=== PATIENT | female | born 1990 | race Two or more races ===

== ENCOUNTER 2016-09-20 20:30 | Outpatient (CLI) | payer MEDICAID ==
[2016-09-20 21:13] VITALS: BMI 31.7
[2016-09-20 22:01] LABS: URINE BILIRUBIN NEGATIVE (NEGATIVE); URINE BLOOD NEGATIVE (NEGATIVE); URINE GLUCOSE (UA) NEGATIVE (NEGATIVE); URINE LEUKOCYTE ESTERASE NEGATIVE (NEGATIVE); URINE NITRITE NEGATIVE (NEGATIVE); URINE PROTEIN NEGATIVE (NEGATIVE); URINE UROBILINOGEN NORMAL (0-1 mg/dl)
[2016-09-20 22:17] LABS: URINE APPEARANCE CLEAR; URINE COLOR YELLOW
== END 2016-09-20 20:42 | disposition home or self-care (01) ==
LOC: FBCOUT 20:30 → FBC 20:30 → FBCOUT 20:42
PROVIDERS: ATTEND Advanced Practice Midwife
DX: O36.8190 Decreased fetal movements, unspecified trimester, not applicable or unspecified (principal); Z3A.00 Weeks of gestation of pregnancy not specified
CPT/HCPCS: 81003; 59025; 81002; G0463

== ENCOUNTER 2016-10-22 08:28 | Outpatient (CLI) | payer MEDICAID ==
[2016-10-22 08:52] VITALS: BMI 33.4
== END 2016-10-22 10:22 | disposition home or self-care (01) ==
LOC: FBCOUT 08:28 → FBC 08:29 → FBCOUT 10:22
PROVIDERS: ATTEND Advanced Practice Midwife
DX: O26.899 Other specified pregnancy related conditions, unspecified trimester (principal); R12 Heartburn; Z3A.00 Weeks of gestation of pregnancy not specified
CPT/HCPCS: 59025; 81002; G0463

== ENCOUNTER 2016-11-21 16:06 | Outpatient (CLI) | payer MEDICAID | END 2016-11-21 16:07 | disposition home or self-care (01) | LOC: NC 16:06 | PROVIDERS: ATTEND Licensed Practical Nurse | DX: O26.03 Excessive weight gain in pregnancy, third trimester (principal); Z71.3 Dietary counseling and surveillance; O99.210 Obesity complicating pregnancy, unspecified trimester; E66.9 Obesity, unspecified; Z3A.00 Weeks of gestation of pregnancy not specified ==

== ENCOUNTER 2016-12-04 07:08 | Outpatient (CLI) | payer MEDICAID ==
--- NOTE | 2016-12-01 16:42 | HP ---
LEONA JAMES : 1990 DATE OF ADMISSION: December 04, 2016 ADMITTING DIAGNOSES: at 37 weeks and 4 days with breech presentation. PLANNED PROCEDURE: External cephalic version attempt. HISTORY OF PRESENT ILLNESS: Leona James is a 26-year-old 1, para 0, who has been followed by the supervisor mold construction practice since about 11 weeks gestation. She had a 13-week ultrasound which was used to date this . She is due on December 21, 2016, and is thought to be now at 37 1/2 weeks gestation. The patient has been seen regularly in the office. On November 26, 2016 she was evaluated and thought to have a breech baby. Indeed, her ultrasound on November 28, 2016 confirmed that this baby is in the cony breech presentation. Eleni Gallego, certified nurse supervisor mold construction, has had a couple of conversations with the patient and talked to her about options. She does understand that if she should go into labor, we would recommend a section for delivery if the baby is still breech. On the other hand, we could attempt to turn this baby and risks and possible complications have been reviewed. The patient is opting to at least try for an external version. Leona will be admitted on December 04, 2016 to the [facility] for this procedure. COURSE: Patient has had regular visits. She is currently a student in cosmetology school. The father of the baby, Se, is present and supportive. She has had routine blood work including blood type which was O positive. She had the one hour glucose tolerance test which came back at 128. She also has had a GBS culture which came back negative. The patient has had a regular increase in her fundal height. She has had normal blood pressures throughout the , no significant proteinuria. She, unfortunately, has had a significant weight gain of nearly 60 pounds so far. The patient actually had an ultrasound on November 09, 2016 which also showed that this baby was breech. This was at 34 weeks. Growth was at the 50th percentile at that time with a normal DONELL. The patient has measured a bit large for gestational age clinically but that ultrasound is certainly reassuring for appropriate growth. PAST MEDICAL HISTORY: Otherwise, the patient has no major medical problems. SOCIAL HISTORY: She does not smoke, drink or use recreational drugs. She is trying to eat a well balanced diet. She denies any known exposure or any genetic risks. REVIEW OF SYSTEMS: Negative. PHYSICAL EXAM: Exam was deferred until the morning of her admission. We will also do an ultrasound before and during the external version attempts. IMPRESSION: Leona James is a 26-year-old primigravida who is now at term and her baby is in a persistent breech presentation. PLAN: The patient will be admitted for evaluation for an external version attempt.
[2016-12-04] MEDS ORDERED: IV START KIT ONE (07:23)
[2016-12-04] MEDS ORDERED: LACTATED RINGERS 1,000 ML ONE (07:23)
[2016-12-04] MEDS ORDERED: TERBUTALINE SULFATE 1 MG/ML VIAL IV ONE (07:44)
[2016-12-04] MEDS ORDERED: LACTATED RINGERS 1,000 ML IV SCH (07:45)
[2016-12-04 07:54] LABS: HEMATOCRIT 38.3 % (37.0-47.0); HEMOGLOBIN 12.9 gm/l (12.0-16.0); MEAN CORPUSCULAR HEMOGLOBIN 29.7 pg (27.0-31.0); MEAN CORPUSCULAR HGB CONC 33.7 g/dl (33.0-37.0); RED CELL DISTRIBUTION WIDTH 12.6 % (11.5-14.5)
[2016-12-04] MEDS ORDERED: TERBUTALINE SULFATE 1 MG/ML VIAL SUB-Q ONE (08:03)
--- NOTE | 2016-12-04 09:16 | PDOC39B ---
Hospital Course: ADMIT DATE: DISCHARGE DATE: 12/04/16 ADMISSION DIAGNOSES: Breech at 37.5 wks PROCEDURES: Attempted external version, unsuccessful HISTORY OF PRESENT ILLNESS: 26 year old Josue Gilmore at weeks days presenting with breech presentation for the past month or so. She does have borderline low fluid. Risks/benefits reviewed; consent signed. HOSPITAL COURSE: The patient was admitted for this procedure. Breech confirmed ; IV started; terbutaline given SQ. Four attempts at turning this baby barely moved her. Martita remained stubbornly breech with head in LUQ and spine to the maternal left. Legs were extended and fluid low. We were unable to turn this baby. NST reactive. Pt was sent home with plan for BPP this Saturday. - Physical Exam General: Afebrile Psych/Mental Status: Mood/Affect Appropriate Lungs: Clear to Auscultation Bilaterally Cardiovascular: Regular Rate and Rhythm Lochia: Light Skin: Normal Color, Warm - Discharge Diagnosis (1) Breech presentation Status: AcuteAssessment/Plan: Unable to turn this baby. We will wait till 39 + weeks to schedule a external version. BPP this Thursday 12/07 and NST on Monday 12/11. - Discharge Plan Condition: Good Disposition: Home Discharge Medications: None. Continue PNvits. Follow-Up: Ligia Cardona MD [Staff Physician] - (Kristina is scheduled for 09:45 am on Saturday12/11/[address] [facility]. )
[2016-12-04 10:53] VITALS: BMI 38.0
--- NOTE | 2016-12-04 10:55 | OP ---
Kristina James : 1990 DATE OF PROCEDURE: 12/04/2016 PROCEDURE: Attempted external cephalic version. SURGEON: Dr. Ligia Cardona INSTANT POWDER SUPERVISOR: Dr. Pinky Mock PROCEDURE IN DETAIL: On the morning of 12/04/2016 after the usual admission evaluation, Kristina James was evaluated with an ultrasound. She was here with her brother Ronan and he spoke only Iraqi. Fortunately, Kristina spoke Danish very well. Her baby girl will be named Martita. Martita was in a breech presentation with the back to the maternal left. The head in the left upper quadrant. The breech not yet engaged. The baby's legs were extended. Placenta was posterior. The fluid was low normal. After reviewing external version with the patient and discussing risks and possible complications and after also discussing alternatives Kristina gave her consent to attempt this external version. She had an IV in place. She was given Terbutaline subcutaneously and this was allowed to take effect . At this point, we held the breech out of the pelvis and then first a forward roll was initiated. I did this with Dr. Mock's assistance and periodically we would check the heart rate with the ultrasound. We were able to displace the head towards the right, but never even got the baby into a transverse position. After taking a break we then tried a reverse roll and this time we could elevate the breech onto the right side, but the head did not come down well and we could not rotate this baby even to a transverse position. I attempted a reverse roll twice and a forward roll twice and in each instance the baby flexed, but did not turn. I suspect that part of the problem was the low fluid. The baby, however, never showed any sign of stress. There were no heart rate decelerations. The baby was monitored both before and after: it had reactive NST. After attempting this external version four times it was decided that further attempts were not going to be useful and the patient agreed. We then talked about an alternate plan. I would like Kristina to come back on Saturday for biophysical profile. She is choosing to this at [facility], but they will call me when they have those results. The patient will then see me next Saturday here in the office and we will do a non-stress test. If the baby is still in a breech presentation we will discuss scheduling a elective primary section for delivery. We did briefly talk about risks and possible complications today. Patient's questions were answered. She will continue to try exercises to see if this baby will turn spontaneously. She does accept that if the baby does not turn would be the optimal way to deliver the baby. JOB: [id number]
== END 2016-12-04 10:15 | disposition home or self-care (01) ==
LOC: FBCOUT 07:08 → FBC 07:15 → FBCOUT 10:15
PROVIDERS: ATTEND Obstetrics & Gynecology
PROC: 10S0XZZ Reposition Products of Conception, External Approach (ICD-10-PCS; principal; 2016-12-04)
DX: O32.1XX0 Maternal care for breech presentation, not applicable or unspecified (principal); Z3A.37 37 weeks gestation of pregnancy
CPT/HCPCS: 85027; 59412; 59025; 76815; J3105; J7120; G0463

== ENCOUNTER 2016-12-14 04:00 | Inpatient (IN) | payer MEDICAID ==
--- NOTE | 2016-12-11 18:49 | HP ---
KRISTINA JAMES : 1990 [id number] DATE OF ADMISSION: December 14, 2016 ADMITTING DIAGNOSES: 1. at term. 2. Persistent breech presentation. PLANNED PROCEDURE: Primary section. HISTORY OF PRESENT ILLNESS: Kristina James is a 26-year-old 1, para 0, who has been followed in the vinyl dipper practice since June of 2016. At her new OB visit, she was felt to be 11 to 12 weeks along. She was assigned her due date based on her first ultrasound which was at 13 weeks and 3 days estimated gestational age. This predicted an EDC of December 21, 2016. The patient has been followed through her with regular visits and has shown an appropriate fundal height from 16 weeks on. If anything, she has been measuring a little bit ahead. In any case, she is thought to be at term. When she was seen in the office at 36 1/2 weeks gestation, her exam suggested a breech presentation. The patient then had an ultrasound two days later which confirmed a cony breech presentation. Patient was then set up for an external cephalic version. This was attempted on December 04, 2016 at 37 1/2 weeks gestation. Unfortunately, this was not successful. The baby was in a breech presentation with the back to the maternal left. Both legs were extended with the feet up high. Fortunately the placenta was posterior but even with this, we could not budge this baby out of a breech presentation. Since then the patient has continued to try various exercises to help this baby to turn, but as of December 11, 2016, the baby was still definitely breech. The patient is having some [place]-Reis contractions but no regular strong contractions. No signs of labor as yet. Risks and possible complications of a breech vaginal have been discussed at length with the patient. Because of this, the recommendation is that we do a primary section for delivery. I have also discussed the risks and possible complications of the surgery with the patient. Alternatives have been presented. Her questions have been answered. The patient is choosing to proceed with a primary section for delivery on December 14, 2016. She will be 39 weeks that day. Clinically I suspect that she might be a little bit further along. This is a good size baby with an estimated weight of probably 8 pounds. COURSE: course has been relative unremarkable. The patient has had normal blood pressures throughout the . No significant proteinuria. She has had a weight gain since June of approximately 56 pounds. Some of this is probably fluid retention in this past week. Her baby is active. She had a non-stress test on December 11, 2016 which was normal and reassuring. She had a biophysical profile on Wednesday, December 07, 2016 after the external version attempt and this was also normal and reassuring. The baby's fluid, however, is borderline low. This is partly why I do not recommend waiting past her due date before delivering this baby. She may be actually further along than we think as she does seem to have low fluid. This patient's testing during the has been normal and reassuring including a group B strep test that was negative. She also had a most recent CBC on December 04, 2016 that was normal with a hemoglobin of 12.9 and a platelet count of 165. She had a one-hour glucose challenge test on September 24, 2016 that came back 128. She is O positive with a negative antibody screen. No other problems have been identified during the . The patient chose not to do any genetic testing for this baby. At her anatomy ultrasound, however, the baby was thought to be a girl and her name will be Nita. PAST MEDICAL HISTORY: Generally Kristina is healthy. She was having somewhat irregular periods before conceiving this . This was not exactly a planned , but she was not on control. She had her Nexplanon removed at the beginning of the year in 2015. She is in cosmetology school. She denies any major medical problems. SOCIAL HISTORY: She does not smoke or drink a significant amount of alcohol or use recreational drugs. The patient has not traveled outside the [place] during this . FAMILY HISTORY: Negative. PHYSICAL EXAM: VITAL SIGNS: Blood pressure 118/80, pulse and respirations normal. Weight 235 pounds. GENERAL: Kristina is a pleasant, intelligent woman who speaks Hungarian very well. LUNGS: Clear to auscultation. No costovertebral angle tenderness. HEART: Regular rate and rhythm. ABDOMEN: Gravid with an estimated weight of 8 pounds. Baby is in a breech presentation with the head in the left upper quadrant. The back is on the left side. heart tones are easily heard at about 150 beats per minute. EXTREMITIES: The patient does have some mild peripheral fluid retention. She was also noted to have 1+ proteinuria. PELVIC: No pelvic exam was performed. IMPRESSION: Kristina is a 26-year-old primigravida with a breech presentation at term. The attempt at an external cephalic version was not successful. The patient is being admitted on Saturday, December 14, 2016, for a primary section.
[2016-12-14] MEDS ORDERED: IV START KIT ONE (05:04)
[2016-12-14] MEDS ORDERED: LACTATED RINGERS 1,000 ML ONE (05:05)
[2016-12-14] MEDS ORDERED: SODIUM CHLORIDE 0.9% FLUSH 10 ML ONE (05:06)
[2016-12-14] MEDS ORDERED: CEFAZOLIN SODIUM 2 GRAM DUPLEX 2 G in Premix (D5W) 50 ml 1 EACH IV PRN (05:07)
[2016-12-14] MEDS: LACTATED RINGERS 1,000 ML IV SCH ×2 (05:35→06:55)
[2016-12-14 06:26] LABS: HEMATOCRIT 35.1 % (37.0-47.0); HEMOGLOBIN 11.6 gm/l (12.0-16.0); MEAN CELL VOLUME 89.8 fl (81.0-99.0); MEAN CORPUSCULAR HEMOGLOBIN 29.7 pg (27.0-31.0); RED CELL DISTRIBUTION WIDTH 13.2 % (11.5-14.5)
[2016-12-14] MEDS ORDERED: SPINAL PROCEDURAL TRAY 1 EACH ONE (06:28)
[2016-12-14] MEDS ORDERED: FENTANYL 100 MCG/2 ML VIAL ONE (06:29)
[2016-12-14] MEDS ORDERED: MORPHINE SULFATE (DURAMORPH) 1 MG/ML 10ML AMP ONE (06:30)
[2016-12-14 06:44] VITALS: BMI 36.3
[2016-12-14] MEDS ORDERED: CEFAZOLIN SODIUM 2 GRAM DUPLEX 50 ML IV ONE (07:27)
[2016-12-14] MEDS ORDERED: PHENYLEPHRINE 10 MG/1 ML (1%) VIAL ONE (07:33)
[2016-12-14] MEDS ORDERED: OXYTOCIN 10 UNITS/ML VIAL ONE (07:38)
[2016-12-14] MEDS ORDERED: HYDROMORPHONE HCL 1 MG/ML SYRINGE IV PRN (07:50)
[2016-12-14] MEDS ORDERED: DIPHENHYDRAMINE HCL 50 MG/1 ML VIAL IV PRN ×2 (07:50→09:10)
[2016-12-14] MEDS ORDERED: EPHEDRINE SULFATE 50 MG/ML 1ML VIAL IV PRN (07:50)
[2016-12-14] MEDS ORDERED: ONDANSETRON 4 MG/2ML 2 ML VIAL IV PRN ×2 (07:50→09:10)
[2016-12-14] MEDS ORDERED: HYDROMORPHONE HCL 2 MG/ML SYRINGE IV PRN (07:50)
[2016-12-14] MEDS ORDERED: PROMETHAZINE HCL 25 MG/ML VIAL IM PRN ×2 (07:50→09:10)
[2016-12-14] MEDS ORDERED: NALOXONE HCL 0.4 MG/ML VIAL IV PRN (07:50)
[2016-12-14] MEDS ORDERED: ONDANSETRON 4 MG/2ML 2 ML VIAL ONE (08:03)
[2016-12-14] MEDS ORDERED: EPHEDRINE SULFATE UD SYR 25 MG 25 MG/5 ML SYRINGE IV ONE (08:17)
--- NOTE | 2016-12-14 08:58 | PCMBPN ---
Brief Post Op Note: Date of Procedure: 12/14/16 Start Time: 07:48 Preoperative Diagnosis: 1. Persistent breech presentation Postoperative Diagnosis: 1. Same Procedure: Primary c/section Surgeon: Ligia Cardona Assist:Azul Girard CNM Anesthesia: spinal, Danilo Redmond CRNA Findings: Baby girl, Breech, "Nita" 8lbs born at 08:00am, 9/9, legs extended, back to maternal left. Normal uterus, tubes and ovaries. Condition: Good Complications: None IV Fluids: 2000 mLs of LR Urine Output: 100 mLs Estimated Blood Loss: 800 mLs Tourniquet Time: N/A Specimens: N/A Implants: N/A Drains: N/A
[2016-12-14] MEDS ORDERED: DIPHENHYDRAMINE HCL 25 MG CAPSULE PO PRN (09:10)
[2016-12-14] MEDS ORDERED: LANOLIN 50 APPLIC/7G TUBE TP PRN (09:10)
[2016-12-14] MEDS ORDERED: MEASLES,MUMPS&RUBELLA VACCINE 0.5 ML VIAL SUB-Q V ONE (09:10)
[2016-12-14] MEDS ORDERED: DIPHTH,PERTUSS(ACELL),TET VAC 0.5 ML VIAL IM V ONE (09:10)
[2016-12-14] MEDS ORDERED: OXYCODONE HCL 5 MG TABLET PO PRN (09:10)
[2016-12-14] MEDS: KETOROLAC TROMETHAMINE 30 MG/ML 1 ML VIAL IV PRN (17:40)
[2016-12-14] MEDS: PRENATAL VIT/FE FUMARATE/FA 1 TABLET PO SCH (19:02)
[2016-12-14] MEDS: DOCUSATE SODIUM 100 MG CAPSULE PO SCH (19:02)
[2016-12-15] MEDS: LACTATED RINGERS 1,000 ML IV SCH ×3 (00:28→07:26)
[2016-12-15] MEDS: DOCUSATE SODIUM 100 MG CAPSULE PO SCH ×3 (00:28→20:39)
[2016-12-15 00:32] LABS: HEPATITIS B SURFACE ANTIGEN Non React (Non React); HEPATITUS C VIRUS ANTIBODY Non React (Non React)
[2016-12-15] MEDS: KETOROLAC TROMETHAMINE 30 MG/ML 1 ML VIAL IV PRN (04:18)
[2016-12-15 06:44] LABS: HEMATOCRIT 35.3 % (37.0-47.0); HEMOGLOBIN 11.9 gm/l (12.0-16.0); MEAN CELL VOLUME 88.5 fl (81.0-99.0); MEAN CORPUSCULAR HEMOGLOBIN 29.8 pg (27.0-31.0); MEAN CORPUSCULAR HGB CONC 33.7 g/dl (33.0-37.0); RED CELL DISTRIBUTION WIDTH 13.2 % (11.5-14.5)
--- NOTE | 2016-12-15 08:47 | PDOC44 ---
- Subjective Day: 1 s/p primary c/s for breech Reports Flatus, Reports Pain Tolerable, Reports , Reports Lochia Moderate, Reports Tolerating Regular Diet - Objective Temp Pulse Resp BP Pulse Ox 98.0 F 88 16 113/58 96 12/15/16 02:06 12/15/16 02:06 12/15/16 02:06 12/15/16 02:06 12/14/16 16:25 Lab Results 12/15/16 06:12 WBC 9.9 RBC 3.99 L Hgb 11.9 L Hct 35.3 L Plt Count 148 Current Medications Generic Name Dose Route Start Last Admin Trade Name Freq PRN Reason Stop Dose Admin Diphenhydramine HCl 25 - 50 mg 12/14/16 09:10 Benadryl PO Q6H PRN Itching (Mild/Moderate) Diphenhydramine HCl 25 - 50 mg 12/14/16 09:10 Benadryl IV Q6H PRN Itching (Severe) Docusate Sodium 100 mg 12/14/16 09:10 12/15/16 00:28 Colace PO Not Given BID COUNTS INCLUDE 234 BEDS AT THE [facility] Emollient Ointment 1 applic 12/14/16 09:10 [id number] TP PRN PRN sore nipples Lactated Ringer's 1,000 mls @ 125 mls/hr 12/14/16 09:10 12/15/16 07:26 Lactated Ringers IV Not Given .Q8H COUNTS INCLUDE 234 BEDS AT THE [facility] Ibuprofen 800 mg 12/14/16 09:10 Motrin PO Q6H PRN Pain Ketorolac Tromethamine 30 mg 12/14/16 09:10 12/15/16 04:18 Toradol IV 30 mg Q6H PRN Administration Pain (Mild/Moderate) Multivi/Iron Carb/Fe Sulf/FA/Prenat 1 tab 12/14/16 09:10 12/14/16 19:02 Plus PO Not Given DAILY COUNTS INCLUDE 234 BEDS AT THE [facility] Ondansetron HCl 4 mg 12/14/16 09:10 Zofran IV Q6H PRN Nausea/Vomiting Oxycodone HCl 5 - 10 mg 12/14/16 09:10 Roxicodone PO Q3H PRN Pain (Severe) Oxycodone/Acetaminophen 1 - 2 tab 12/14/16 09:10 Percocet 5/325 PO Q4H PRN Pain (Moderate) Promethazine HCl 25 mg 12/14/16 09:10 Phenergan IM Q6H PRN Nausea/Vomiting Sodium Chloride 10 ml 12/14/16 09:10 12/15/16 04:18 Normal Saline 10ml Flush IV 10 ml PRN PRN Administration IV Flush Sodium Chloride 10 ml 12/14/16 17:00 12/15/16 07:27 Normal Saline 10ml Flush IV Not Given Q8HR ALEXIS - Physical Exam Fundus: Firm, Below Umbilicus Abdomen: Tenderness (appropriately tender), No Distention Wound ASSISTIVE TECHNOLOGY SPECIALIST: Well Approximated, Other (sutures and steri strips intact), No Eccymosis, No Edema Disposition: Stable (doing well, regular postoperative care.)
[2016-12-15] MEDS: PRENATAL VIT/FE FUMARATE/FA 1 TABLET PO SCH (09:53)
[2016-12-15] MEDS: IBUPROFEN 800 MG TABLET PO PRN ×2 (10:33→20:10)
[2016-12-15] MEDS: OXYCODONE/ACETAMINOPHEN 5/325 MG TABLET PO PRN (10:33)
--- NOTE | 2016-12-15 13:10 | OP ---
LEONA RODRIGUEZ [id number] : 1990 DATE OF OPERATION: December 14, 2016 PREOPERATIVE DIAGNOSES: 1. Persistent breech presentation. 2. at term. POST OPERATIVE DIAGNOSES: 1. Persistent breech presentation. 2. at term. OPERATION PERFORMED: Primary section (lower uterine segment transverse incision). SURGEON: Ligia Cardona M.D. TEACHER: Azul Girard C.N.M. AVIATION TECHNICAL SYSTEMS SPECIALIST: Danilo Redmond C.R.N.A. ANESTHESIA: Spinal. ESTIMATED BLOOD LOSS: 800 mL. FINDINGS: Leona had normal anatomy. The lower uterine segment was partly developed. She was delivered of a vigorous baby girl from a left sacrum transverse presentation. This baby weighed 8 pounds and was born at 8:00 a.m. on December 14, 2016. She had scores of 9 at one minute and 9 at five minutes. Her name is Nita. Leona was found to have a normal uterus with no septum, normal fallopian tubes and ovaries. PROCEDURE: On the morning of December 14, 2016, after the usual preoperative preparations were completed in the patient's hospital room, Leona was brought to the operating room and placed on the operating room table in a sitting position. The usual monitoring leads were placed. Spinal anesthesia was then administered by Danilo Redmond without any difficulty. Leona was then assisted into a supine position with the wedge under her right hip. heart tones were verified. A Amaral catheter was placed and then an abdominal prep was performed in the usual fashion. This was allowed to dry and then the drape was placed. A timeout was performed verifying proper patient, procedure, position, personnel and equipment. Patient did receive 2 g of preoperative Ancef. After testing for an adequate level of anesthesia, a transverse incision was made above the symphysis pubis with the first knife. This was carried down through the adipose layer with sharp and blunt dissection and using cautery for hemostasis. The fascia was incised the length of the incision. It was mobilized inferiorly and superiorly. The muscles were then in the midline. The peritoneum was identified and opened vertically. There was a small amount of free fluid in the peritoneal cavity. The lower uterine segment was partly developed. The breech was deep in the pelvis. A transverse incision was made in the visceral peritoneum, and this allowed mobilization of a bladder flap inferiorly. A transverse incision was then made across the lower uterine segment, and this was carried down carefully to the uterine cavity. The baby's left hip was presenting. The breech was easily delivered through this incision and then with continuous fundal pressure, the baby was gradually delivered first by flexing her knees and delivering her legs and then by bringing out each arm safely and then gently delivering her head. This was done by Azul Girard without any difficulty. The baby was shown directly to her mother and grandmother. She had excellent tone and cry. After approximately 45 seconds, the cord was clamped and cut and the baby was handed to the baby nurse. Cord blood was obtained and the placenta was delivered. The patient was bleeding profusely from the uterine incision so T-clamps were placed. The uterus was exteriorized and this incision was rapidly closed with continuous interlocking suture of #1 Chromic. A second layer was used to imbricate this first layer. There was still some bleeding in the midline, and this was controlled with a couple of [id number] sutures of #1 Chromic. The pelvis was then well irrigated with warm saline and all blood clots and debris were removed. The uterus was placed back within the peritoneal cavity. Hemostasis was verified. Lap, sponge and instrument counts were reported as correct. The abdomen was then closed in layers as follows. The peritoneum and muscle were reapproximated in the midline with some #2-0 Vicryl. The fascia was closed with #0 PDS. The adipose layer was closed with some #2-0 plain suture, and then the skin was reapproximated with #4-0 Monocryl. SteriStrips were placed in the usual fashion. The patient was cleaned up, a bandage was placed, and she was eventually transferred to her bed and taken to her postoperative recovery room in stable condition.
[2016-12-16] MEDS: OXYCODONE/ACETAMINOPHEN 5/325 MG TABLET PO PRN ×2 (01:14→13:10)
[2016-12-16] MEDS: IBUPROFEN 800 MG TABLET PO PRN ×2 (03:35→10:24)
[2016-12-16 08:22] VITALS: BP 119/66
--- NOTE | 2016-12-16 09:21 | PDOC44 ---
- Subjective Day: 2 Reports Flatus, Reports Pain Tolerable, Reports , Reports Lochia Light, Reports Tolerating Regular Diet - Objective Temp Pulse Resp BP Pulse Ox 97.4 F 85 16 119/66 96 12/16/16 08:21 12/16/16 08:21 12/16/16 08:21 12/16/16 08:21 12/14/16 16:25 Current Medications Generic Name Dose Route Start Last Admin Trade Name Freq PRN Reason Stop Dose Admin Diphenhydramine HCl 25 - 50 mg 12/14/16 09:10 Benadryl PO Q6H PRN Itching (Mild/Moderate) Docusate Sodium 100 mg 12/14/16 09:10 12/15/16 20:39 Colace PO 100 mg BID ALEXIS Administration Emollient Ointment 1 applic 12/14/16 09:10 [id number]-M-[id number] TP PRN PRN sore nipples Ibuprofen 800 mg 12/14/16 09:10 12/16/16 03:35 Motrin PO 800 mg Q6H PRN Administration Pain Multivi/Iron Carb/Fe Sulf/FA/Prenat 1 tab 12/14/16 09:10 12/15/16 09:53 Plus PO 1 tab DAILY ALEXIS Administration Ondansetron HCl 4 mg 12/14/16 09:10 Zofran IV Q6H PRN Nausea/Vomiting Oxycodone HCl 5 - 10 mg 12/14/16 09:10 Roxicodone PO Q3H PRN Pain (Severe) Oxycodone/Acetaminophen 1 - 2 tab 12/14/16 09:10 12/16/16 01:14 Percocet 5/325 PO 1 tab Q4H PRN Administration Pain (Moderate) Promethazine HCl 25 mg 12/14/16 09:10 Phenergan IM Q6H PRN Nausea/Vomiting - Physical Exam Fundus: Firm, At Umbilicus Abdomen: Normal Bowel Sounds, Tenderness (appropriately mildly tender), No Distention Wound END LATHE OPERATOR: Well Approximated, No Shadow Drainage, No Drainage, No Erythema, No Rash Disposition: Anticipate DC to Home (Pt ok with discharge today; rx percocet, motrin. f/u 2w for postop eval.)
--- NOTE | 2016-12-16 09:23 | PDOC39B ---
Hospital Course: ADMIT DATE: 12/14/16 DISCHARGE DATE: 12/16/16 ADMISSION DIAGNOSES: term , breech presentation, failed version PROCEDURES: primary low transverse c/section HISTORY OF PRESENT ILLNESS: 26 year old G1 T0 L0 at 39 weeks 0 days presenting with term , breech, and had failed external cephalic version. HOSPITAL COURSE: The patient had a primary low transverse c/section. Baby female, 8lbs, 9/9 apgars. Pt had uncomplicated postop course. By day of discharge the patient is ambulating, eating, voiding, and passing flatus without difficulty. Pain is controlled and lochia is appropriate. She is [] Pt discharged with percocet / motrin. Vital Signs - 24 hr 12/15/16 12/16/16 12/16/16 13:46 01:13 08:21 Temperature 98.0 F 97.6 F 97.4 F Pulse Rate 82 82 85 Respiratory 18 20 16 Rate Blood Pressure 115/61 124/57 119/66 Laboratory Tests 12/14/16 12/14/16 12/15/16 06:10 06:15 06:12 WBC 8.2 9.9 RBC 3.91 L 3.99 L Hgb 11.6 L 11.9 L Hct 35.1 L 35.3 L MCV 89.8 88.5 MCH 29.7 29.8 MCHC 33.0 33.7 RDW 13.2 13.2 Plt Count 154 148 Syphilis IgG/IgM Ab Non-reactive Hep Bs Antigen Non react Hepatitis C Antibody Non react Hepatitis C Ab Index 0.03 - Physical Exam Vital Signs: Temp Pulse Resp BP Pulse Ox 97.4 F 85 16 119/66 96 12/16/16 08:21 12/16/16 08:21 12/16/16 08:21 12/16/16 08:21 12/14/16 16:25
[2016-12-16] MEDS: PRENATAL VIT/FE FUMARATE/FA 1 TABLET PO SCH (10:23)
[2016-12-16] MEDS: DOCUSATE SODIUM 100 MG CAPSULE PO SCH (10:24)
== END 2016-12-16 14:21 | disposition home or self-care (01) | DRG 766 ==
LOC: SUATTDRO → UNDOADMIN 04:00 → FBC 04:00 → EDSTATUS 12-21 03:57
PROVIDERS: ADMIT Obstetrics & Gynecology; ATTEND Obstetrics & Gynecology
PROC: 10D00Z1 Extraction of Products of Conception, Low, Open Approach (ICD-10-PCS; principal; 2016-12-14)
DX: O32.1XX0 Maternal care for breech presentation, not applicable or unspecified (principal); Z3A.39 39 weeks gestation of pregnancy; Z37.0 Single live birth

== ENCOUNTER 2016-12-21 14:03 | Outpatient (CLI) | payer MEDICAID | END 2016-12-21 14:04 | disposition home or self-care (01) | LOC: BABIESSH 14:03 | PROVIDERS: ATTEND Obstetrics & Gynecology | DX: Z39.1 Encounter for care and examination of lactating mother (principal) ==